=== PATIENT | male | born 1970 | race Two or more races ===

== ENCOUNTER 2019-08-10 17:05 | Emergency (ER) | payer BC, OTHER ==
[~2019-08-10] VITALS: Ht 170.2 cm; Wt 89.0 kg
[2019-08-10] MEDS ORDERED: HYDROmorphone 2 MG/ML, 1ML ONE (17:23)
[2019-08-10] MEDS ORDERED: ONDANSETRON ODT 8 MG ONE (17:23)
--- NOTE | 2019-08-10 17:29 | NUR ---
Pt medicated for pain per JUL. ultrasound technician at bedside to perform ordered studies. Pt c/o R ankle pain after rolling it while playing soccer today. Obvious deformity to R medial ankle, CMS intact. Pt c/o 02/21 pain
[2019-08-10] MEDS ORDERED: ONDANSETRON ODT 8 MG PO ONE (17:30)
[2019-08-10] MEDS ORDERED: HYDROmorphone 2 MG/ML, 1ML IM ONE (17:30)
--- NOTE | 2019-08-10 18:22 | NUR ---
AT BEDSIDE TO DISCUSS POC. EMT PLACED SPLINT
--- NOTE | 2019-08-10 19:01 | NUR ---
DISCHARGE INSTRUCTIONS REVIEWED
[2019-08-10 19:06] VITALS: BP 103/59
== END 2019-08-10 19:08 | disposition home or self-care (01) ==
LOC: ED 17:42
DX: S82.831A Other fracture of upper and lower end of right fibula, initial encounter for closed fracture (principal); S93.421A Sprain of deltoid ligament of right ankle, initial encounter; F17.200 Nicotine dependence, unspecified, uncomplicated; W18.39XA Other fall on same level, initial encounter; Y93.66 Activity, soccer; Y92.328 Other athletic field as the place of occurrence of the external cause; Y99.8 Other external cause status
CPT/HCPCS: 29515; 73590; 73610; 96372; 99284; J1170; Q0162; 29505